=== PATIENT | female | born 1960 | race Caucasian/White ===

== ENCOUNTER 2016-05-29 07:09 | Day surgery (SDC) | payer OTHER ==
[~2016-05-29] VITALS: Ht 152.4 cm; Wt 86.0 kg
[2016-05-29 08:13] VITALS: Ht 152.4 cm; Wt 86.0 kg
[2016-05-29] MEDS ORDERED: VITAMINS (08:17)
[2016-05-29 08:25] VITALS: BP 122/67; PULSE 59; RESP 17
[2016-05-29] MEDS ORDERED: FENTAnyl 50 MCG/ML VIAL ONE (09:29)
[2016-05-29] MEDS ORDERED: MIDAZOLAM 1 MG/ML 2 ML INJ ONE ×2 (09:29)
[2016-05-29 09:50] VITALS: BP 116/78; RESP 18
--- NOTE | 2016-05-29 12:01 | GILP ---
DATE OF PROCEDURE: NAME OF PROCEDURE: Colonoscopy and biopsy. SURGEON: Phuc Dunn MD PREOPERATIVE DIAGNOSIS: Screening colonoscopy. POSTOPERATIVE DIAGNOSES: 1. Colonoscopy all the way to the cecum. 2. Small sigmoid colon polyp was removed. 3. Diverticulosis of the colon. 4. Internal hemorrhoids. INDICATION FOR THE PROCEDURE: Ms. Allyson Beavers is a 55-year-old female patient who was scheduled for screening colonoscopy. The procedure and possible complications were well explained to the patient. The patient understood and consented to the procedure. DESCRIPTION OF PROCEDURE: Under the influence of fentanyl and Versed the colonoscope was carefully introduced in the rectum and under direct vision it was advanced all the way to the cecum. FINDINGS: The patient had a small sigmoid colon polyp and it was removed using the biopsy forceps. The patient was noted to have diverticulosis of the colon. She also had internal hemorrhoids. She tolerated the procedure very well and there was no complication from the procedure. At the end of the procedure she was awake with stable vital signs and she was discharged home to the care of he r family. IMPRESSION: 1. Colonoscopy all the way to the cecum. 2. Small sigmoid colon polyp was removed using the biopsy forceps. 3. Diverticulosis of the colon. 4. Internal hemorrhoids. PLAN: Next screening colonoscopy in 10 years. Dictated By: PHUC GALEAS/REBEL Conf#: [id number] DID#: [id number]
== END 2016-05-29 11:33 | disposition home or self-care (01) ==
LOC: GIL 07:09
PROVIDERS: ATTEND Internal Medicine Gastroenterology
DX: Z12.11 Encounter for screening for malignant neoplasm of colon (principal); D12.5 Benign neoplasm of sigmoid colon; K57.30 Diverticulosis of large intestine without perforation or abscess without bleeding; K64.8 Other hemorrhoids
CPT/HCPCS: 45380; 88305; J2250; J3010; Z7610